=== PATIENT | male | born 1995 | race Caucasian/White ===

== ENCOUNTER 2016-10-15 07:23 | Emergency (ER) | payer OTHER, SELFPAY ==
[~2016-10-15] VITALS: Ht 175.3 cm; Wt 79.4 kg
--- NOTE | 2016-10-15 07:25 | NUR ---
ROOM PT BROUGHT TO ROOM, AMBULATED, PT ANXIOUS, MOVING AROUND, TRIAGE DONE.
[2016-10-15] MEDS ORDERED: TORADOL IV STA (07:36)
[2016-10-15] MEDS ORDERED: LACTATED RINGERS IV STA (07:36)
[2016-10-15] MEDS ORDERED: TORADOL ONE (07:37)
[2016-10-15] MEDS ORDERED: LACTATED RINGERS 1,000 ML ONE (07:37)
--- NOTE | 2016-10-15 07:45 | NUR ---
LR STARTED LR PER DR ORDER, DID NOT CROSS OVER TO EMAR.
--- NOTE | 2016-10-15 08:14 | ER.PDOC ---
General Chief Complaint: Abdomen Pain Stated Complaint: POSS KIDNEY STONE Time seen by MD: 08:08 Source: patient History of Present Illness Initial Comments Patient with history of Kidney stone, now with worsening abdominal and flank pain. Timing/Duration: 24 hours Severity/Quality: severe Radiation: flank Allergies: Coded Allergies: Penicillins (Verified Allergy, Mild, MILD, 10/15/16) Vital Signs First Vital Signs Date Time Temp Pulse Resp B/P Pulse Ox O2 Delivery O2 Flow Rate FiO2 10/15/16 07:30 97.7 80 18 100 10/15/16 07:33 149/106 Last Vital Signs Date Time Temp Pulse Resp B/P Pulse Ox O2 Delivery O2 Flow Rate FiO2 10/15/16 07:33 97.7 80 18 149/106 100 Past Medical History Medical History: no pertinent history, other (nephrolithiasis) Surgical History: no surgical history Social History Smoking: chew Alcohol Use: occasionally Drug Use: none Constitutional: no symptoms reported EENTM: no symptoms reported Respiratory: no symptoms reported Cardiovascular: no symptoms reported Gastrointestinal: no symptoms reported Genitourinary: frequency hematuria Musculoskeletal: no symptoms reported Skin: no symptoms reported Psychiatric/Neurological: no symptoms reported Endocrine: no symptoms reported Hematologic/Lymphatic: no symptoms reported All Other Systems: Reviewed and Negative Physical Exam General Appearance: WD/WN, Mild Distress (in pain) HEENT: PERRL/EOMI, Normal ENT Inspection, TMs Normal, Pharynx Normal Neck: Non-Tender, Full Range of Motion, Supple, Normal Inspection Respiratory: chest non-tender, lungs clear, normal breath sounds, no respiratory distress, no accessory muscle use Cardiovascular: Normal Peripheral Pulses, Regular Rate, Rhythm, No Edema, No Gallop, No JVD, No Murmur Gastrointestinal: Normal Bowel Sounds, Soft, Tenderness (LLQ) Back: Normal Inspection, No Vertebral Tenderness, CVA Tenderness (L) Extremities: Normal Range of Motion, Non-Tender, Normal Inspection, No Pedal Edema, No Calf Tenderness, Normal Capillary Refill, Pelvis Stable 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 Albert came and saw patient in the ED. EKG/XRAY/CT/US CT Comments: 11mm stone proximal left ureter with hydroureter Course Blood Pressure Systolic: 149 Blood Pressure Diastolic: 106 Blood Pressure Mean: 120 Departure Time of Disposition: 09:51 Disposition: 01 HOME, SELF-CARE Impression: Primary Impression: Left nephrolithiasis Additional Impression: UTI (urinary tract infection) Condition: Stable Referrals: PCP,UNKNOWN (PCP) PRIMARY CARE PROVIDER Additional Instructions: Ciprofloxacin F/U with Dr. Albert at 1:15pm today Problem Qualifiers Additional Impression: UTI (urinary tract infection) Urinary tract infection type: site unspecified Hematuria presence: with hematuria Qualified Code: N39.0 - Urinary tract infection, site not specified GARRISON CASTELLANO DO Oct 15, 2016 08:14 SHARMILA CADET MD Oct 15, 2016 09:54
--- NOTE | 2016-10-15 08:30 | PRM.ACF1 ---
Admission Criteria Forms ABDOMINAL PAIN Clinical Indications for Admission to Inpatient Care (Place 'X' for any and all applicable criteria): Admission is indicated for ANY ONE of the following(1)(2)(3)(4)(5): [X ]I. Inpatient admission required rather than observation care (Also use Abdominal Pain: Observation Care, as appropriate) because of ANY ONE of the following: [X ]a) Severe pain requiring acute inpatient management [ ]b) Identification of etiology/finding that requires inpatient care (eg, aortic dissection, free air) [ ]c) Absent bowel sounds with complete ileus(6) [ ]d) Suspected toxic megacolon [ ]e) Severe electrolyte abnormalities requiring inpatient care [ ]f) High fever or infection requiring inpatient admission as indicated by ANY ONE of following(7)(8): [ ] i) Appropriate outpatient or observational care antimicrobial treatment unavailable, not effective, or not feasible [ ] ii) Documented bacteremia [ ] iii) Temperature > 104.9 degrees F (oral) [ ] iv) T >103.1 F (oral) or < 96.8 F(rectal) that does not respond to all emergency treatment measures [ ]g) Signs of intestinal obstruction [B] [ ]h) Hemodynamic instability [ ]i) IV fluid to replace significant ongoing losses (greater than 3 L/m2 per day) (12)(13) [ ]j) Percutaneous or open drainage (eg, abscess, biliary tract ) procedures [ ]k) Parenteral nutrition regimen that must be implemented on inpatient basis [ ]l) Other condition,treatment or monitoring requiring inpatient admission. [ ]II. Peritoneal signs present [ ]III. Surgery needed that cannot be performed on an ambulatory basis. [ ]IV. Evaluation requires patient to not eat or drink for extended period ( eg, more than 24 hours). [ ]V. Contraindications and/or Inappropriate clinical situations for Observational Care in patients with abdominal pain, when ANY ONE of the following is required: [ ]a) Thorough evaluation is required to prevent catastrophic events due to delays in diagnosing (e.g.Mesenteric ischemia) 1,3 [ ]b) Patient with severe pathology or with chronic symptoms unlikely to improve in the ED stay (3) [ ]. General contraindications and/or Inappropriate clinical situations for Observational Care in patients with abdominal pain, when ANY ONE of the following is required: [ ]a) Prediction of prolongation of LOS based on ANY ONE of the following may be considered as a contraindication for observational care 2, 3, 4, 5, 6, 7, 8, 9, 10, 11 [ ]i) Age > 65 yrs. [ ]ii) Patient arriving by ambulance [ ]iii) Patient with high acuity [ ]iv) Patient requiring vital sign monitoring [ ]v) Patient on IV medication [ ]b) Systolic blood pressures 180mmHg 3,12 [ ]c) Patient with altered mental status including delirium and other alteration of consciousness, (3) [ ]d) Patient whose discharge disposition will be to a senior care home or rehabilitation home should not be managed in Emergency Department Observation Unit. CMS rule requires 3 days hospital stay before such placement.3,13 [ ]e) Patient with failure to thrive due to broad array of etiologies 3,16,17 [ ]f) Inability to ambulate 3,14 Extended stay beyond goal length of stay may be needed for(2)(3): [ ]a) Persistent abdominal pain with suspected intra-abdominal process [ ]b) Diagnosed condition requiring continued stay (e.g., pancreatitis, complicated diverticulitis) [ ]c) Surgery (e.g., colectomy) The original [employer] content created by [employer] has been revised. The portions of the content which have been revised are identified through the use of italic text or in bold, and [employer] [employer] has neither reviewed nor approved the modified material.All other unmodified content is copyright [employer]. Please see references footnoted in the original [employer] edition 2016 Is AC/Jairo's added/comple: YES MARIFER SWANSON CCDS Oct 15, 2016 08:30
--- NOTE | 2016-10-15 08:41 | DIREP ---
PROCEDURE:CT ABDOMEN/PELVIS W/O CONTRAST COMPARISON:[facility], CT, CT RENAL STONE PROTOCOL, 12/03/2015, 04:27 PM. INDICATIONS:POSSIBLE KIDNEY STONE LEFT SIDED PAIN SINCE AM TECHNIQUE:Axial images were created through the abdomen and pelvis without intravenous contrast material. No oral contrast was administered. Sagittal and coronal reconstructions were performed from source images. FINDINGS: LUNG BASES:Normal. No visible pulmonary or pleural disease. LIVER:Normal. No significant liver lesions are identified. BILIARY:Normal. No visible dilatation or calcification. PANCREAS:Normal. No lesion, fluid collection, ductal dilatation, or atrophy. SPLEEN:Normal. No enlargement or focal lesion. ADRENALS:Normal. No mass or enlargement. URINARY TRACT:There is a 7 x 10 x 11 mm calculus in the left renal pelvis. Mild dilatation of the left renal pelvis. Mild edema of the left parapelvic fat. The no ureteral calculus or obstruction on either side. The right kidney is unremarkable. AORTA/VASCULAR:Normal. No aneurysm. RETROPERITONEUM:Normal. No mass or adenopathy. BOWEL/MESENTERY:Normal. There is no intestinal obstruction, free fluid, free air or mesenteric inflammatory changes. The appendix is normal. ABDOMINAL WALL:Normal. No mass or hernia. PELVIC ORGANS:Normal. No visible mass. Pelvic organs appropriate for patient age. BONES:Normal for age. No bony lesion or acute fracture. OTHER:Negative. CONCLUSION: 1. Compared to the prior exam of 2015, there is been increase in size in the left renal pelvis calculus. There is also a new mild dilatation of the right renal pelvis and new left parapelvic fat edema. This calculus may be causing intermittent obstruction and chronic inflammation in the left renal pelvis, and is likely the cause of the patient's left-sided pain. 2. No evidence of left ureteral calculus or obstruction. No other calculi are identified in either kidney. Dictated by: Naveen Downs M.D. on 10/15/2016 at 08:35 AM
[2016-10-15 08:52] LABS: BILIRUBIN,URINE NEGATIVE (NEGATIVE); UROBILINOGEN,URINE NORMAL (NEGATIVE)
[2016-10-15 09:02] LABS: UA COLOR YELLOW (YELLOW)
[2016-10-15 09:03] LABS: APPEARANCE,URINE HAZY (CLEAR)
--- NOTE | 2016-10-15 09:37 | NUR ---
DR ADELFO FOSTER MBA CONVERSING WITH DR RESENDEZ ABOUT PT CONDITION
--- NOTE | 2016-10-15 09:44 | NUR ---
DR ADELFO EMANUEL ARRIVED TO SEE PT
[2016-10-15 09:45] LABS: BASOPHIL # 0.1 10^3/uL (0.0-0.1); BASOPHIL % 0.6 % (0.0-0.2); EOSINOPHIL # 0.6 10^3/uL (0.0-0.2); EOSINOPHIL % 6.4 % (0.0-5.0); HEMATOCRIT 44.7 % (37.0-53.0); HEMOGLOBIN 16.2 g/dL (13.9-16.3); LYMPHOCYTES # 2.3 10^3/uL (1.0-4.8); LYMPHOCYTES % 24.9 % (24.0-44.0); MEAN CELL HGB 29.6 pg (26-34); MEAN CELL HGB CONCENTRATION 36.2 g/dL (33-37); MEAN CORP VOLUME 81.7 fL (78-100); MONOCYTES % 10.9 % (5.0-12.0); NEUTROPHIL # 5.2 10^3/uL (1.8-7.7); RED CELL DISTRIBUTION WIDTH 12.2 % (11.5-14.5); WHITE BLOOD CELL 9.1 10^3/uL (4.5-11.0)
[2016-10-15 10:07] VITALS: BP 117/63
[2016-10-15 10:13] LABS: CALCIUM 9.7 mg/dL (8.4-10.5); CARBON DIOXIDE 24.1 mmol/L (20.0-32)
[2016-10-16] MEDS ORDERED: CETI10TA24 PO (04:56)
[2016-10-16] MEDS ORDERED: CIPR500T86 PO (11:37)
[2016-10-16] MEDS ORDERED: TRAM50TA PO (11:37)
[2016-10-22] MEDS ORDERED: ACET-685 PO (08:48)
== END 2016-10-15 10:05 | disposition home or self-care (01) ==
LOC: ER 07:23
DX: N20.0 Calculus of kidney (principal); N13.4 Hydroureter; N39.0 Urinary tract infection, site not specified; R31.9 Hematuria, unspecified; Z88.0 Allergy status to penicillin
CPT/HCPCS: 36415; 74176; 80053; 81000; 85025; 85610; 85730; 87086; 96374; 99285; J1885; J7120

== ENCOUNTER 2016-10-16 02:26 | Day surgery (SDC) | payer OTHER, SELFPAY ==
[~2016-10-16] VITALS: Ht 175.3 cm; Wt 79.4 kg
[2016-10-16] VITALS (11 sets, daily range): BP systolic 132–172; BP diastolic 76–99
[2016-10-16] MEDS ORDERED: LASIX ONE (04:27)
[2016-10-16] MEDS ORDERED: LACTATED RINGERS 1,000 ML ONE (04:56)
[2016-10-16] MEDS ORDERED: CETI10TA24 PO (04:56)
[2016-10-16] MEDS ORDERED: LEVAQUIN 100 ML IV ONE ×2 (04:57→08:00)
[2016-10-16] MEDS ORDERED: LASIX IV ONE (08:00)
[2016-10-16] MEDS ORDERED: LACTATED RINGERS 1,000 ML IV SCH ×2 (08:00→12:00)
[2016-10-16] MEDS ORDERED: SODIUM CHLORIDE IR ONE ×2 (09:41)
[2016-10-16] MEDS ORDERED: SUBLIMAZE ONE (10:30)
[2016-10-16] MEDS ORDERED: VERSED ONE (10:30)
[2016-10-16] MEDS ORDERED: TRAM50TA PO (11:37)
[2016-10-16] MEDS ORDERED: CIPR500T86 PO (11:37)
--- NOTE | 2016-10-16 11:49 | DIREP ---
PROCEDURE:XRAY FLUOROSCOPY COMPARISON:[facility], CT, CT ABD/PELVIS W/O, 10/15/2016, 07:44 AM. INDICATIONS:CYSTO, RETROGRADE WITH STENT INSERTION; 11.33 mGy; 29.7 sec TECHNIQUE:Fluoroscopy was utilized intraoperatively. 29.7 seconds fluoroscopy time was used. 5 fluoroscopic spot views were provided. FINDINGS:Initial images appear to reflect trimmer helper views of the abdomen and pelvis. There is a sizable calculus within the expected region of the left renal pelvis, correlating with findings on the recent CT. Subsequent images demonstrate partial retrograde opacification of the left ureter and left intrarenal collecting system. A left ureteral stent is present on the final images. CONCLUSION: 1. Images obtained during left retrograde pyelogram with left ureteral stent placement. Redemonstration of a sizable calculus within the region of the left renal pelvis as seen on the previous CT. Please refer to the separate procedure report for further details. Dictated by: Jarrett Bermeo M.D. On 10/16/2016 at 11:46 AM
[2016-10-16] MEDS ORDERED: ZOFRAN ONE (12:00)
[2016-10-16] MEDS ORDERED: NORCO 7.5MG PO PRN (12:00)
[2016-10-16] MEDS ORDERED: LASIX IV SCH (12:00)
[2016-10-16] MEDS ORDERED: DIPRIVAN IV ONE (12:29)
--- NOTE | 2016-10-16 12:59 | OPH ---
DATE OF SURGERY: 10/16/2016 PREOPERATIVE DIAGNOSIS: Calculus, left renal pelvis with an indwelling stent. FINAL DIAGNOSIS: Calculus, left renal pelvis with an indwelling stent. PROCEDURES: Cystoscopy, left retrograde, stone manipulation and insertion of double-J ureteral stent and left ESWL. DESCRIPTION OF PROCEDURE: The patient was brought initially to the cystoscopy room and was put in supine position on the cystoscopy table. After the patient was given a satisfactory and adequate LMA general anesthesia, the patient was placed in lithotomy position. First, a 22-Spanish cystoscope was inserted per urethra up to the bladder. With the use of the right angle lens, the bladder was visualized. There was no congestion noted. No bladder tumor, no calculi seen. No ulcerations seen in the bladder. Both ureteral orifices were identified. Initially, left retrograde was done by inserting a 7-Spanish ureteral catheter in the left ureteral orifice, injected with an Isovue dye and the findings revealed a large calculus in the left renal pelvis. Stone manipulation was then performed and then a double-J 6-Spanish ureteral stent was inserted from the left orifice all the way to the kidney. After this was done, the bladder was emptied with fluid. Instrument was removed and the patient was put back in supine position and then the patient was transferred to the lithotripsy room. After localization of the stone with the use of an ultrasound and a fluoroscopy, left ESWL was then performed using a Dornier Compact Delta II Lithotripter. A total of 2500 shockwaves were delivered to the stones in the left kidney under ultrasound guidance. After fragmentation of the stone as noted in the ultrasound and fluoroscopy, the procedure was terminated. The patient was awakened, was transferred to the recovery room in stable condition. Jame Albert MD DR: REJI/consuelo JOB# [id number]
== END 2016-10-16 13:00 | disposition home or self-care (01) ==
LOC: SURG 02:26 → SDC 13:00
PROVIDERS: ATTEND Urology
DX: N20.0 Calculus of kidney (principal); Z46.6 Encounter for fitting and adjustment of urinary device
CPT/HCPCS: 50590; 52352; 74420; 76000; J1956; J2250; J2405; J3010; J3490; J7030; J7120; Q9966; C1758; C1769; C2617; J1940

== ENCOUNTER 2016-10-22 00:09 | Day surgery (SDC) | payer OTHER, SELFPAY ==
[2016-10-22] VITALS (10 sets, daily range): BP systolic 120–159; BP diastolic 64–90
[~2016-10-22] VITALS: Ht 175.3 cm; Wt 79.4 kg
[~2016-10-22 00:09] MED LIST: CETI10TA24 PO; CIPR500T86 PO; TRAM50TA PO
[2016-10-22] MEDS ORDERED: LACTATED RINGERS 1,000 ML ONE ×2 (05:06→08:24)
[2016-10-22] MEDS ORDERED: LEVAQUIN 100 ML IV ONE ×2 (05:06→06:00)
[2016-10-22] MEDS ORDERED: LACTATED RINGERS 1,000 ML IV SCH ×2 (06:00→09:00)
[2016-10-22] MEDS ORDERED: LIDOCAINE 1% VIAL ONE (06:53)
[2016-10-22] MEDS ORDERED: TORADOL ONE (06:53)
[2016-10-22] MEDS ORDERED: VERSED ONE (06:54)
[2016-10-22] MEDS ORDERED: ZOFRAN ONE (06:54)
[2016-10-22] MEDS ORDERED: SUBLIMAZE ONE (06:55)
[2016-10-22] MEDS ORDERED: DIPRIVAN IV ONE (06:55)
[2016-10-22] MEDS ORDERED: SODIUM CHLORIDE IR ONE ×2 (07:17)
[2016-10-22] MEDS ORDERED: ACET-685 PO (08:48)
[2016-10-22] MEDS ORDERED: NORCO 7.5MG PO PRN (09:00)
[2016-10-22] MEDS ORDERED: TAMS0.4C2 PO (09:01)
[2016-10-22] MEDS ORDERED: NORCO 7.5MG PO ONE (09:21)
--- NOTE | 2016-10-22 10:05 | DIREP ---
PROCEDURE:XRAY FLUOROSCOPY COMPARISON:[facility], CT, CT ABD/PELVIS W/O, 10/15/2016, 07:44 AM. INDICATIONS:CYSTO, STENT REMOVAL, 195.2 SECOND FLUORO, 44.13 mGy TECHNIQUE:7 digital images were obtained in the cystoscopy suite. FINDINGS:The left ureter was cannulized. Presumably, the previously demonstrated 7 x 10 x 11 mm calculus was extracted. A left ureteral stent was left in place and is in good position. CONCLUSION: 1. Presumed extraction a 7 x 10 x 11 mm calculus previously noted within the left renal pelvis; please refer to intraoperative report by Dr. Albert. 2. Left ureteral stent placed which is in good position. Dictated by: Ishmael Sharif M.D. on 10/22/2016 at 10:10 AM
--- NOTE | 2016-10-22 12:15 | OPH ---
DATE OF SURGERY: 10/22/2016 DESCRIPTION OF PROCEDURE: The patient was brought to the cystoscopy room and was put in supine position on the cystoscopy table. After the patient was given satisfactory and adequate LMA general anesthesia, the patient was then placed in the lithotomy position. The genitalia was then prepped and draped aseptically in the usual manner. First, a ____-[place] cystoscope was inserted per urethra up to the bladder. With the use of the right angle lens, the bladder was visualized. There was some congestion noted. The left ureteral stent was then removed and then replaced with a guidewire. After this was done, the cystoscope was removed and the ____ dilatation was then performed at the distal ureter. After this one, a 7-[place] semirigid ureteroscope was inserted per urethra up to the left ureteral orifice all the way to the upper ureter. There was some small stone noted in the upper and mid ureter and this was extracted and the specimen appears to be pulverized. After this, the ureteroscopy was again performed and there was no more obstruction noted. The procedure was terminated. ____wire was removed and then the ureteroscope was reinserted through the urethra to the bladder and the bladder was emptied with fluid. After this was done, the instrument was removed. The patient was awakened, was transferred to the recovery room in stable condition. Jame Albert MD DR: REJI/consuelo JOB# [id number]
== END 2016-10-22 09:45 | disposition home or self-care (01) ==
LOC: SURG 00:09
PROVIDERS: ATTEND Urology
DX: N20.1 Calculus of ureter (principal); Z46.6 Encounter for fitting and adjustment of urinary device
CPT/HCPCS: 52332; 76000; J1885; J1956; J2001; J2250; J2405; J3010; J3490; J7030; J7120 ×2; C1769

== ENCOUNTER 2018-12-27 20:06 | Emergency (ER) | payer OTHER ==
[~2018-12-27] VITALS: Ht 175.3 cm; Wt 90.7 kg
[~2018-12-27 20:06] MED LIST changes: +ACET-685 PO; +TAMS0.4C2 PO
[2018-12-27] MEDS ORDERED: LACTATED RINGERS 1,000 ML IV STA (20:32)
[2018-12-27] MEDS ORDERED: TORADOL IV STA (20:32)
--- NOTE | 2018-12-27 20:35 | ER.PDOC ---
General Chief Complaint: Flank Pain Stated Complaint: ABD PAIN,N/V, Time seen by MD: 20:34 Source: patient Exam Limitations: no limitations History of Present Illness Initial Comments Left flank pain since this morning. Severity/Quality: moderate, sharpness Radiation: LLQ Associated Symptoms: nausea/vomiting Exacerbated by: nothing Relieved By: nothing Allergies: Coded Allergies: Penicillins (Verified Allergy, Mild, MILD, 10/15/16) PT HAS NEVER TAKEN PCN - THIS ALLERGY CAME FROM A SKIN ALLERGY TEST codeine (Verified Allergy, Unknown, 12/27/18) Home Meds Active Scripts Acetaminophen With Codeine (TYLENOL WITH CODEINE #3 TABLET) 1 Each Tablet, 1 TAB PO Q6, #15 TAB Prov:REFUGIO RESENDEZ MD 10/22/16 Ciprofloxacin Hcl (CIPRO) 500 Mg Tablet, 500 MG PO BID, #14 Prov:REFUGIO RESENDEZ MD 10/16/16 Reported Medications Tamsulosin Hcl (TAMSULOSIN HCL) 0.4 Mg Cap.er.24h, 1 CAP PO DAILY, #10 CAP 5 Refills 10/22/16 Cetirizine Hcl (ZYRTEC) 10 Mg Tablet, 20 MG PO DAILY, TABLET 10/16/16 Vital Signs First Vital Signs Date Time Temp Pulse Resp B/P (MAP) Pulse Ox O2 Delivery O2 Flow Rate FiO2 12/27/18 20:21 97.9 97.9 12/27/18 20:21 78 16 12/27/18 20:21 98 Room Air Last Vital Signs Date Time Temp Pulse Resp B/P (MAP) Pulse Ox O2 Delivery O2 Flow Rate FiO2 12/27/18 20:21 97.9 78 16 98 Room Air 97.9 Past Medical History Medical History: other (Kidney stone) Surgical History: no surgical history Social History Smoking: non-smoker Alcohol Use: none Drug Use: none Constitutional: no symptoms reported EENTM: no symptoms reported Respiratory: no symptoms reported Cardiovascular: no symptoms reported Gastrointestinal: see HPI Genitourinary: see HPI All Other Systems: Reviewed and Negative Physical Exam General Appearance: No Apparent Distress, WD/WN Neck: Non-Tender, Full Range of Motion, Supple, Normal Inspection Respiratory: chest non-tender, lungs clear, normal breath sounds, no respiratory distress, no accessory muscle use Cardiovascular: Normal Peripheral Pulses, Regular Rate, Rhythm, No Edema, No Gallop, No JVD, No Murmur Gastrointestinal: Normal Bowel Sounds, No Organomegaly, No Pulsatile Mass, Soft, Tenderness (LLQ) Back: Normal Inspection, No CVA Tenderness, No Vertebral Tenderness Extremities: Normal Range of Motion, Non-Tender, Normal Inspection, No Pedal Ed [place], No Calf Tenderness, Normal Capillary Refill, Pelvis Stable 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 (12/27/18 20:32) Urinalysis (12/27/18 20:32) Ct Abd/Pelvis Wo Iv Contrast (12/27/18 20:32) Ringer's Solution,Lactated (Lactated Rin (12/27/18 20:32) Ketorolac Tromethamine (Toradol) (12/27/18 20:32) Ringer's Solution,Lactated (Lactated Rin (12/27/18 20:38) Ketorolac Tromethamine (Toradol) (12/27/18 20:38) Vital Signs Date Time Temp Pulse Resp B/P (MAP) Pulse Ox O2 Delivery O2 Flow Rate FiO2 12/27/18 20:21 97.9 78 16 98 Room Air 97.9 12/27/18 20:21 97.9 78 16 97.9 12/27/18 20:21 97.9 97.9 Administered Medications Medications (Trade) Dose Ordered Sig/Javier Route PRN Reason Start Time Stop Time Status Last Admin Dose Admin Ketorolac Tromethamine (Toradol) 30 mg STAT STAT IV 12/27/18 20:32 12/27/18 20:34 DC 12/27/18 20:49 30 MG Laboratory Tests Test 12/27/18 20:45 White Blood Count 10.3 10^3/uL (4.5-11.0) Red Blood Count 5.59 10^6/uL (4.50-5.90) Hemoglobin 16.6 g/dL (13.9-16.3) H Hematocrit 45.7 % (37.0-53.0) Mean Corpuscular Volume 81.8 fL (78-100) Mean Corpuscular Hemoglobin 29.7 pg (26-34) Mean Corpuscular Hemoglobin Concent 36.3 g/dL (33-37) Red Cell Distribution Width 12.4 % (11.5-14.5) Platelet Count 253 10^3/uL (150-400) Mean Platelet Volume 9.6 fL (7.8-11.0) Neutrophils (%) (Auto) 69.3 % (41.0-85.0) Lymphocytes (%) (Auto) 14.7 % (24.0-44.0) L Monocytes (%) (Auto) 12.6 % (5.0-12.0) H Neutrophils # (Auto) 7.2 10^3/uL (1.8-7.7) Lymphocytes # (Auto) 1.5 10^3/uL (1.0-4.8) Monocytes # (Auto) 1.3 10^3/uL (0.3-0.8) H Absolute Immature Granulocyte (auto 0.01 10^3 u/L (0-2) Immature Granulocytes % 0.10 % (0.00-0.50) Eosinophils % 3.2 % (0.0-5.0) Basophils % 0.1 % (0.0-0.2) Basophils # 0.0 10^3/uL (0.0-0.1) Eosinophil Count 0.3 10^3/uL (0.0-0.2) H Prothrombin Time 11.2 SEC (9.8-11.9) Prothrombin Time INR (Non-Therap) 1.1 PTT 25.0 SEC (24.67-30.72) Sodium Level 140 mmol/L (132-145) Potassium Level 3.7 mmol/L (3.6-5.2) Chloride Level 104.0 mmol/L (96-109) Carbon Dioxide Level 26.6 mmol/L (20.0-32) Anion Gap 13.1 Blood Urea Nitrogen 14 mg/dL (7-18) Creatinine 1.98 mg/dL (0.59-1.40) H Estimated GFR () 50.1 (>/=60) BUN/Creatinine Ratio 7.0 Glucose Level 83 mg/dL (70-110) Calcium Level 9.7 mg/dL (8.4-10.5) Total Bilirubin 1.1 mg/dL (0.2-1.0) H Aspartate Amino Transferase (AST) 65 U/L (0-35) H Alanine Aminotransferase (ALT) 22 U/L (12-78) Alkaline Phosphatase 97 U/L (50-136) Total Protein 8.0 g/dL (6.4-8.2) Albumin 4.1 g/dL (3.4-5.0) Globulin 3.[address] abdomen/pelvis: Left nephrolithiasis noted as well as moderate left hydronephrosis. No obstructing ureteral calculus or hydroureter is present. Course Vitals & review Data Vital Sign - Last 24 Hours 12/27/18 12/27/18 12/27/18 20:21 20:21 20:21 Temp 97.9 97.9 97.9 97.9 97.9 97.9 Pulse 78 78 Resp 16 16 Pulse Ox 98 O2 Delivery Room Air Laboratory Tests Test 12/27/18 20:45 White Blood Count 10.3 10^3/uL Red Blood Count 5.59 10^6/uL Hemoglobin 16.6 g/dL Hematocrit 45.7 % Mean Corpuscular Volume 81.8 fL Mean Corpuscular Hemoglobin 29.7 pg Mean Corpuscular Hemoglobin Concent 36.3 g/dL Red Cell Distribution Width 12.4 % Platelet Count 253 10^3/uL Mean Platelet Volume 9.6 fL Neutrophils (%) (Auto) 69.3 % Lymphocytes (%) (Auto) 14.7 % Monocytes (%) (Auto) 12.6 % Neutrophils # (Auto) 7.2 10^3/uL Lymphocytes # (Auto) 1.5 10^3/uL Monocytes # (Auto) 1.3 10^3/uL Absolute Immature Granulocyte (auto 0.01 10^3 u/L Immature Granulocytes % 0.10 % Eosinophils % 3.2 % Basophils % 0.1 % Basophils # 0.0 10^3/uL Eosinophil Count 0.3 10^3/uL Prothrombin Time 11.2 SEC Prothrombin Time INR (Non-Therap) 1.1 Activated Partial Thromboplast Time 25.0 SEC Sodium Level 140 mmol/L Potassium Level 3.7 mmol/L Chloride Level 104.0 mmol/L Carbon Dioxide Level 26.6 mmol/L Anion Gap 13.1 Blood Urea Nitrogen 14 mg/dL Creatinine 1.98 mg/dL Estimated GFR () 50.1 BUN/Creatinine Ratio 7.0 Glucose Level 83 mg/dL Calcium Level 9.7 mg/dL Total Bilirubin 1.1 mg/dL Aspartate Amino Transf (AST/SGOT) 65 U/L Alanine Aminotransferase (ALT/SGPT) 22 U/L Alkaline Phosphatase 97 U/L Total Protein 8.0 g/dL Albumin 4.1 g/dL Globulin 3.9 Sepsis Infection Criteria Pres: None O2 Sat by Pulse Oximetry: 98 Departure Time of Disposition: 22:22 Disposition: 01 HOME, SELF-CARE Impression: Primary Impression: Left nephrolithiasis Condition: Stable Referrals: PCP,UNKNOWN (PCP) PRIMARY CARE PROVIDER Additional Instructions: Push fluids F/U with Dr. Resendez tomorrow, call for appointment. Duration or Time Spent with Pa: 60 mins SHARMILA CADET MD Dec 27, 2018 20:35
[2018-12-27] MEDS ORDERED: TORADOL ONE (20:38)
[2018-12-27] MEDS ORDERED: LACTATED RINGERS 1,000 ML ONE (20:38)
--- NOTE | 2018-12-27 20:49 | NUR ---
TO CT PATIENT TO CT WITH TECH
[2018-12-27 20:52] LABS: BASOPHIL % 0.1 % (0.0-0.2); EOSINOPHIL # 0.3 10^3/uL (0.0-0.2); EOSINOPHIL % 3.2 % (0.0-5.0); HEMOGLOBIN 16.6 g/dL (13.9-16.3); LYMPHOCYTES # 1.5 10^3/uL (1.0-4.8); LYMPHOCYTES % 14.7 % (24.0-44.0); MEAN CELL HGB 29.7 pg (26-34); MEAN CELL HGB CONCENTRATION 36.3 g/dL (33-37); MEAN CORP VOLUME 81.8 fL (78-100); MEAN PLATELET VOLUME 9.6 fL (7.8-11.0); MONOCYTES # 1.3 10^3/uL (0.3-0.8); MONOCYTES % 12.6 % (5.0-12.0); NEUTROPHIL # 7.2 10^3/uL (1.8-7.7); NEUTROPHILS % 69.3 % (41.0-85.0); PLATELET COUNT 253 10^3/uL (150-400); RED CELL DISTRIBUTION WIDTH 12.4 % (11.5-14.5); WHITE BLOOD CELL 10.3 10^3/uL (4.5-11.0)
--- NOTE | 2018-12-27 21:10 | DIREP ---
PROCEDURE:CT ABD/PELVIS WITHOUT CONTRAST TECHNIQUE:No oral contrast was given. Axial cuts were obtained from the dome of the diaphragm to the ischial tuberosities. No intravenous contrast was given. The images were viewed at lung and soft tissue settings. Sagittal and coronal reconstructions are provided. COMPARISON:[facility], CT, CT ABD/PELVIS W/O, 10/15/2016, 07:44 AM. INDICATIONS:Left flank pain FINDINGS: LOWER CHEST:The lung bases are clear. LIVER:Normal. BILIARY:Normal. PANCREAS:Normal. SPLEEN:Normal. URINARY TRACT:The right kidney appears normal. Moderate left hydronephrosis is noted. No hydroureter is present. Two 8 mm calculi are demonstrated in the lower left kidney. Minimal stranding is noted in the left perinephric fat. ADRENALS:Normal. AORTA/VASCULAR:Normal. RETROPERITONEUM:Normal. BOWEL/MESENTERY:Normal. The appendix appears normal. ABDOMINAL WALL:Normal. PELVIS:Normal. BONES:Normal. OTHER:Normal. CONCLUSION: 1. Left nephrolithiasis noted as well as moderate left hydronephrosis. No obstructing ureteral calculus or hydroureter is present. Dictated by: Ishmael Sharif M.D. on 12/27/2018 at 09:04 PM
[2018-12-27 21:12] LABS: CALCIUM 9.7 mg/dL (8.4-10.5); CARBON DIOXIDE 26.6 mmol/L (20.0-32)
[2018-12-27 22:38] VITALS: BP 121/67
== END 2018-12-27 22:31 | disposition home or self-care (01) ==
LOC: ER 20:06
DX: N20.0 Calculus of kidney (principal); Z87.442 Personal history of urinary calculi; Z88.0 Allergy status to penicillin; Z88.5 Allergy status to narcotic agent
CPT/HCPCS: 36415; 74176; 80053; 85025; 85610; 85730; 96361; 96374; 99285; J1885; J7120